=== PATIENT | male | born 1955 | race Caucasian/White ===

== ENCOUNTER 2021-01-06 11:01 | Emergency (ER) | payer OTHER, SELFPAY ==
--- NOTE | 2021-01-06 11:17 | PC.NURSE ---
Pt on phone in waiting room when called for triage. Asked that I wait. Told I would return.
[2021-01-06 11:41] VITALS: BP 170/105; PULSE 108; RESP 16; TEMP 36.7; O2SAT 98; BMI 28.8
--- NOTE | 2021-01-06 12:03 | PC.NURSE ---
Patient reports pain in left hip since . Radiating down front of left thigh burning, numbing pain. Unable to get comfortable. No relief with tramadol.
--- NOTE | 2021-01-06 12:35 | DI.CT.S_ITS ---
PROCEDURE: CT ABDOMEN PELVIS W CON INDICATIONS: Groin pain, ?hernia TECHNIQUE: After the administration of IV contrast, axial sections were acquired from the lung bases to the pubic symphysis. Coronal and sagittal reformats were performed. For radiation dose reduction, the following was used: automated exposure control, adjustment of mA and/or kV according to patient size. COMPARISON: [facility], CR, XR HIP W PEL IF DONE LT 2V, 01/06/2021, 13:42. FINDINGS: Image quality: Excellent. Lung bases: Unremarkable. Heart: No significant findings. ABDOMEN: Liver: Hepatic steatosis is present. Gallbladder: The gallbladder is unremarkable. Biliary ducts: Unremarkable. Pancreas: Unremarkable. Spleen: Unremarkable. Adrenal Glands: Unremarkable. Kidneys and Ureters: 4.0 cm exophytic simple left renal cyst is present. Smaller similar foci are identified bilaterally. No renal obstruction is present. Stomach and Bowel: Stomach, small bowel loops, and colon are unremarkable. Colonic diverticular present without associated inflammatory change. Peritoneum: No abnormal intraperitoneal fluid. No free air. Ventral Wall: Trace fat containing umbilical hernia is present with rectus diastasis measuring approximately 3 mm. Abdominal Nodes: No retroperitoneal or mesenteric adenopathy by size criteria. Vessels: Aorta and inferior vena cava are normal in size. PELVIS: Pelvic Organs: Prostate gland is prominent. Bladder: Unremarkable. Pelvic Nodes: No enlarged lymph nodes. Miscellaneous: Bilateral fat containing inguinal hernias are present. Bones: Unremarkable. IMPRESSION: 1. Trace containing ventral hernia. 2. Diverticulosis. Dictated by: Chela Mora M.D. on 01/06/2021 at 14:08 Approved by: Chela Mora M.D. on 01/06/2021 at 14:15
--- NOTE | 2021-01-06 12:35 | DI.RAD.S_ITS ---
PROCEDURE: XR HIP W PEL IF DONE LT 2V INDICATIONS: Froin and hip pain TECHNIQUE: AP pelvis with lateral view(s) of the left hip(s). COMPARISON: None. FINDINGS: Bones: No fractures or dislocations. Pelvic ring appears intact. No suspicious bony lesions. Moderate degenerative hip joint space narrowing. Soft tissues: The visualized bowel gas pattern is normal. No suspicious soft tissue calcifications. IMPRESSION: Arthritic changes are present hip. No visualized acute fracture or dislocation. However, if clinical concern and/or pain persist, short interval imaging followup in 7-10 days is recommended, as occult injury cannot be definitively excluded. Dictated by: Chela Mora M.D. on 01/06/2021 at 14:05 Approved by: Chela Mora M.D. on 01/06/2021 at 14:08
[2021-01-06] MEDS: KETOROLAC 30 MG/ML VIAL 15 MG IM (12:58)
[2021-01-06] MEDS: CYCLOBENZAPRINE 10 MG TABLET PO (12:58)
[2021-01-06 13:22] LABS: Add Manual Diff / Slide Review NO; Basophils Absolute Auto 100 /uL (0-100); Basophils Percent Auto 1.1 % (0-2); Eosinophils Absolute Auto 600 /uL (0-450); Eosinophils Percent Auto 5.6 % (2-4); Hematocrit 48.1 % (41-53); Hemoglobin 16.8 g/dL (13.5-17.5); Lymphocytes Absolute Auto 1900 /uL (1100-4500); Mean Corpuscular HGB Conc 34.9 % (30-36); Mean Corpuscular Volume 91.6 fL (80-100); Monocytes Absolute Auto 700 /uL (0-900); Monocytes Percent Auto 7.1 % (3-14); Neutrophils Absolute Auto 6800 /uL (1500-7000); Neutrophils Percent Auto 67.2 % (50-75); Platelet Count 198 X10^3/uL (150-400); Red Blood Cell Count 5.25 X10^6/uL (4.5-5.9); Red Cell Distribution Width 12.8 % (11.6-14.8); White Blood Cell Count 10.2 X10^3/uL (4.5-11.0)
[2021-01-06 13:37] LABS: Lactate (Lactic Acid) 1.5 mmol/L (0.7-2.1)
[2021-01-06 13:39] LABS: Alanine Aminotransferase 45 IU/L (<50); Albumin 4.5 g/dL (3.5-5.0); Albumin Globulin Ratio 1.7 (1.0-2.8); Alkaline Phosphatase 69 U/L (38-126); Aspartate Aminotransferase 33 IU/L (17-59); Bilirubin Total 0.7 mg/dL (0.2-1.3); Blood Urea Nitrogen 24 mg/dL (9-20); Calcium 9.9 mg/dL (8.4-10.2); Carbon Dioxide 25 mmol/L (22-32); Chloride 105 mmol/L (98-107); Estimated Glomerular Filt Rate > 60.0 mL/min (>60); Globulin 2.7 g/dL (1.7-4.1); Glucose 99 mg/dL (80-110); HEMOLYSIS < 15 (0-50); Lipase 31 U/L (23-300); Potassium 4.6 mmol/L (3.4-5.1); Sodium 139 mmol/L (137-145); Total Protein 7.2 g/dL (6.3-8.2)
--- NOTE | 2021-01-06 13:41 | ED.EXTPRO ---
HPI - Extremity Problem <Pushpa Lopez PA-C - Last Filed: 01/06/21 16:49> General Chief complaint: Extremity Problem,Nontraumatic Stated complaint: pain in back, neck down to knee numbness x4 days Time Seen by Provider: 01/06/21 11:57 Source: patient Mode of arrival: Ambulatory History of Present Illness HPI Narrative: 65-year-old male with past medical history hypertension, diabetes presents to the ED with 5 days of lower back and groin pain. Patient states that he 1st started feeling some twinges about 2 weeks ago in his left hip, symptoms worsened 5 days ago manifesting as left-sided lower back pain that radiates to the left groin and thigh. Patient states that his pain is currently mostly in his groin and thigh area. Symptoms are worsened with movement and moving side to side. Pain is improved when leaning forward or hunching forward. Patient denies any trauma. Has a history of sciatica on the right side, according to patient the current symptoms are different from his sciatica pain. Patient denies fever, chills, chest pain, cough, shortness of breath, nausea, vomiting, abdominal pain, dysuria, urinary hesitancy, urinary incontinence, saddle paresthesia, stool incontinence, lightheadedness, dizziness, syncope. Patient denies numbness, tingling, weakness. Patient tried tramadol with no relief. Related Data Allergies Allergy/AdvReac Type Severity Reaction Status Date / Time acetaminophen [From Vicodin] Allergy Flushing Verified 01/06/21 11:44 hydrocodone [From Vicodin] Allergy Flushing Verified 01/06/21 11:44 lisinopril Allergy Cough Verified 01/06/21 11:44 Review of Systems <Pushpa Lopez PA-C - Last Filed: 01/06/21 16:49> Review of Systems ROS Unobtainable: All systems reviewed & are unremarkable except as noted in HPI and below Constitutional Constitutional: Denies chills, Denies fatigue, Denies fever(s), Denies frequent falls, Denies lethargy and Denies weakness Eyes Eyes: Denies change in vision, Denies eye discharge, Denies irritation and Denies loss of vision ENT Ears, Nose, Mouth, and Throat: Denies change in voice, Denies dizziness, Denies neck pain, Denies sore throat and Denies throat swelling Cardiovascular Cardiovascular: Denies chest pain, Denies irregular heart rhythm, Denies lightheadedness, Denies palpitations, Denies dyspnea, Denies dyspnea on exertion and Denies orthopnea Respiratory Respiratory: Denies cough, Denies dyspnea, Denies dyspnea on exertion and Denies wheezing Gastrointestinal Gastrointestinal: Denies abdominal pain, Denies change in bowel habits, Denies diarrhea, Denies nausea and Denies vomiting Genitourinary Genitourinary: Denies hematuria, Denies flank pain, Denies urinary incontinence and Denies urinary urgency Musculoskeletal Musculoskeletal: Reports back pain, Denies muscle weakness, Denies neck pain, Denies numbness and Denies tingling Comments: Left-sided lower back pain radiating to the left groin and left front thigh Integumentary/Breasts Skin/Breast: Denies pruritus, Denies erythema, Denies rash and Denies wounds Neurologic Neurologic: Denies behavioral changes, Denies confusion, Denies dizziness, Denies frequent falls, Denies loss of vision, Denies numbness, Denies tingling and Denies weakness Psychiatric Psychiatric: Denies anxiety, Denies behavioral changes, Denies confusion, Denies depression, Denies homicidal ideation and Denies suicidal ideation Endocrine Endocrine: Denies fatigue, Denies flushing and Denies palpitations Hematologic/Lymphatic Hematologic/Lymphatic: Denies easy bruising Allergic/Immunologic Allergic/Immunologic: Denies urticaria, Denies throat swelling and Denies wheezing Patient History <Pushpa Lopez PA-C - Last Filed: 01/06/21 16:49> Social History Smoking Status: Former smoker Smoking Status: Former smoker Substance Use Type: does not use Exam <Pushpa Lopez PA-C - Last Filed: 01/06/21 16:49> Initial Vital Signs Initial Vital Signs: Vital Signs Temperature 98.1 F 01/06/21 11:41 Pulse Rate 108 H 01/06/21 11:41 Respiratory Rate 16 01/06/21 11:41 Blood Pressure 170/105 H 01/06/21 11:41 Pulse Oximetry 98 01/06/21 11:41 Const General: cooperative and healthy appearing [facility] Head: normal to inspection Eyes General: appearance normal, both eyes and all related structures Neck Neck: normal visual inspection Chest Chest: normal inspection of the chest Resp Effort & Inspection: normal respiratory effort Auscultation: clear to auscultation bilaterally Cardio Rate: regular rate Rhythm: regular rhythm GI Inspection: normal to inspection Other: Left-sided groin tenderness to palpation. No palpable hernia. Scrotum: no masses and no scrotal swelling Back/Spine/Pelvis Back: normal to inspection Other: No midline tenderness to palpation Skin General: no rashes or lesions noted Neuro General: patient alert, patient awake and patient oriented x3 Other: Strength and sensation intact. PERRLA. CN 1 through 12 intact bilaterally Extrem General: normal to inspection <Zen El DO - Last Filed: 01/06/21 17:16> Initial Vital Signs Initial Vital Signs: Vital Signs Temperature 98.1 F 01/06/21 11:41 Pulse Rate 108 H 01/06/21 11:41 Respiratory Rate 16 01/06/21 11:41 Blood Pressure 170/105 H 01/06/21 11:41 Pulse Oximetry 98 01/06/21 11:41 Course <Pushpa Lopez PA-C - Last Filed: 01/06/21 16:49> Orders Ordered: ED Orders 01/06/21 12:35 CT abdomen pelvis w con Stat XR hip w pel if done LT 2V Stat 01/06/21 13:03 CBC Auto Diff [Complete Blood Count AUTO DIFF] Stat CMP [Comprehensive Metabolic Panel] Stat Lactate (Lactic Acid) Stat Lipase Stat Discontinued Medications Cyclobenzaprine HCl (Cyclobenzaprine 10 Mg Tablet) 10 mg PO NOW ONE Stop: 01/06/21 12:37 Last Admin: 01/06/21 12:58 Dose: 10 mg Documented by: KAMAR Ketorolac Tromethamine (Ketorolac 30 Mg/Ml Vial) 15 mg IM NOW ONE Stop: 01/06/21 12:37 Last Admin: 01/06/21 12:58 Dose: 15 mg Documented by: KAMAR Vital Signs Vital signs: Vital Signs - 8 hr 01/06/21 11:41 01/06/21 14:27 Temperature 98.1 F Pulse Rate 108 H 94 H Respiratory Rate 16 19 Blood Pressure 170/105 H 164/97 H Pulse Oximetry 98 95 <DO Margaret Byrnes Last Filed: 01/06/21 17:16> Orders Ordered: ED Orders 01/06/21 12:35 CT abdomen pelvis w con Stat XR hip w pel if done LT 2V Stat 01/06/21 13:03 CBC Auto Diff [Complete Blood Count AUTO DIFF] Stat CMP [Comprehensive Metabolic Panel] Stat Lactate (Lactic Acid) Stat Lipase Stat Discontinued Medications Cyclobenzaprine HCl (Cyclobenzaprine 10 Mg Tablet) 10 mg PO NOW ONE Stop: 01/06/21 12:37 Last Admin: 01/06/21 12:58 Dose: 10 mg Documented by: KAMAR Ketorolac Tromethamine (Ketorolac 30 Mg/Ml Vial) 15 mg IM NOW ONE Stop: 01/06/21 12:37 Last Admin: 01/06/21 12:58 Dose: 15 mg Documented by: KAMAR Vital Signs Vital signs: Vital Signs - 8 hr 01/06/21 11:41 01/06/21 14:27 Temperature 98.1 F Pulse Rate 108 H 94 H Respiratory Rate 16 19 Blood Pressure 170/105 H 164/97 H Pulse Oximetry 98 95 MDM - Extremity (Nontraumatic) <Pushpa Lopez PA-C - Last Filed: 01/06/21 16:49> Medical Records Attestation: I reviewed the patient's medical records. Lab Data Result diagrams: 01/06/21 13:03 01/06/21 13:03 Labs: Lab Results 01/06/21 01/06/21 01/06/21 Range/Units 13:03 13:03 13:03 WBC 10.2 (4.5-11.0) X10^3/uL RBC 5.25 (4.5-5.9) X10^6/uL Hgb 16.8 (13.5-17.5) g/dL Hct 48.1 (41-53) % MCV 91.6 (80-100) fL MCH 32.0 (26-34) PG MCHC 34.9 (30-36) % RDW 12.8 (11.6-14.8) % Plt Count 198 (150-400) X10^3/uL Neut % (Auto) 67.2 (50-75) % Lymph % (Auto) 19.0 L (25-40) % [place] % (Auto) 7.1 (3-14) % Eos % (Auto) 5.6 H (2-4) % Baso % (Auto) 1.1 (0-2) % Neut # (Auto) 6800 (7090-4848) /uL Lymph # (Auto) 1900 (3385-7940) /uL [place] # (Auto) 700 (0-900) /uL Eos # (Auto) 600 H (0-450) /uL Baso # (Auto) 100 (0-100) /uL Sodium 139 (137-145) mmol/L Potassium 4.6 (3.4-5.1) mmol/L Chloride 105 (98-107) mmol/L Carbon Dioxide 25 (22-32) mmol/L BUN 24 H (9-20) mg/dL Creatinine 1.20 (0.66-1.25) mg/dL Estimated GFR > 60.0 (>60) mL/min BUN/Creatinine Ratio 20.0 (6-22) Glucose 99 (80-110) mg/dL Lactate 1.5 (0.7-2.1) mmol/L Calcium 9.9 (8.4-10.2) mg/dL Total Bilirubin 0.7 (0.2-1.3) mg/dL AST 33 (17-59) IU/L ALT 45 (<50) IU/L Alkaline Phosphatase 69 (38-126) U/L Total Protein 7.2 (6.3-8.2) g/dL Albumin 4.5 (3.5-5.0) g/dL Globulin 2.7 (1.7-4.1) g/dL Albumin/Globulin Ratio 1.7 (1.0-2.8) Lipase 31 (23-300) U/L Imaging Data Hip XR: Radiologist's Impression: PROCEDURE:? XR HIP W PEL IF DONE LT 2V ? INDICATIONS:? Froin and hip pain ? TECHNIQUE:? AP pelvis with lateral view(s) of the left hip(s).? ? COMPARISON:? None. ? FINDINGS:? ? Bones:? No fractures or dislocations.? Pelvic ring appears intact.? No suspicious bony lesions.? Moderate degenerative hip joint space narrowing. ? Soft tissues:? The visualized bowel gas pattern is normal.? No suspicious soft tissue calcifications.? ? ? IMPRESSION:? Arthritic changes are present hip. No visualized acute fracture or dislocation. However, if clinical concern and/or pain persist, short interval imaging followup in 7-10 days is recommended, as occult injury cannot be definitively excluded. ? ? ? Dictated by: Chela Mora M.D. on 01/06/2021 at 14:05 ? ? Approved by: Chela Mora M.D. on 01/06/2021 at 14:08 ? CT scan - abdomen/pelvis: Radiologist's Impression: PROCEDURE:? CT ABDOMEN PELVIS W CON ? INDICATIONS:? Groin pain, ?hernia ? TECHNIQUE:? After the administration of IV contrast, axial sections were acquired from the lung bases to the pubic symphysis.? Coronal and sagittal reformats were performed.? For radiation dose reduction, the following was used:? automated exposure control, adjustment of mA and/or kV according to patient size. ? COMPARISON:? [facility], CR, XR HIP W PEL IF DONE LT 2V, 01/06/2021, 13:42. ? FINDINGS:? Image quality:? Excellent.? ? Lung bases:? Unremarkable.? ? Heart:? No significant findings. ? ? ABDOMEN: Liver:? Hepatic steatosis is present. Gallbladder:? The gallbladder is unremarkable.? ? Biliary ducts:? Unremarkable.? ? Pancreas:? Unremarkable.? ? Spleen:? Unremarkable.? ? Adrenal Glands:? Unremarkable.? ? Kidneys and Ureters:? 4.0 cm exophytic simple left renal cyst is present.? Smaller similar foci are identified bilaterally.? No renal obstruction is present. ? Stomach and Bowel:? Stomach, small bowel loops, and colon are unremarkable.? Colonic diverticular present without associated inflammatory change. Peritoneum:? No abnormal intraperitoneal fluid.? No free air.? ? Ventral Wall: ? Trace fat containing umbilical hernia is present with rectus diastasis measuring approximately 3 mm. Abdominal Nodes:? No retroperitoneal or mesenteric adenopathy by size criteria.? Vessels:? Aorta and inferior vena cava are normal in size.? ? PELVIS: Pelvic Organs:? Prostate gland is prominent. Bladder:? Unremarkable.? ? Pelvic Nodes: No enlarged lymph nodes.? Miscellaneous:? Bilateral fat containing inguinal hernias are present. ? Bones:? Unremarkable.? IMPRESSION:? ? 1. Trace containing ventral hernia. ? 2. Diverticulosis.? ? ? Dictated by: Chela Mora M.D. on 01/06/2021 at 14:08 ? ? Approved by: Chela Mora M.D. on 01/06/2021 at 14:15 ? [facility] Narrative Medical decision making narrative: 65-year-old male with past medical history hypertension, diabetes presents to the ED with 5 days of lower back and groin pain. Concern for fracture/dislocation versus hernia versus groin strain. Will order labs, lactate, CT abdomen pelvis, hip and pelvis x-rays. Will treat pain with Toradol external. Will reassess. Pain improved with the Toradol, Flexeril. CT with no acute findings. X-ray with no acute findings. Bilateral inguinal hernias, umbilical hernia, left renal cyst noted on CT, discussed with patient for further follow-up. Patient discharged home with ED return precautions, PCP follow-up. Patient verbalized understanding. <Zen El DO - Last Filed: 01/06/21 17:16> Lab Data Labs: Lab Results 01/06/21 01/06/21 01/06/21 Range/Units 13:03 13:03 13:03 WBC 10.2 (4.5-11.0) X10^3/uL RBC 5.25 (4.5-5.9) X10^6/uL Hgb 16.8 (13.5-17.5) g/dL Hct 48.1 (41-53) % MCV 91.6 (80-100) fL MCH 32.0 (26-34) PG MCHC 34.9 (30-36) % RDW 12.8 (11.6-14.8) % Plt Count 198 (150-400) X10^3/uL Neut % (Auto) 67.2 (50-75) % Lymph % (Auto) 19.0 L (25-40) % [place] % (Auto) 7.1 (3-14) % Eos % (Auto) 5.6 H (2-4) % Baso % (Auto) 1.1 (0-2) % Neut # (Auto) 6800 (7711-5201) /uL Lymph # (Auto) 1900 (2793-7008) /uL [place] # (Auto) 700 (0-900) /uL Eos # (Auto) 600 H (0-450) /uL Baso # (Auto) 100 (0-100) /uL Sodium 139 (137-145) mmol/L Potassium 4.6 (3.4-5.1) mmol/L Chloride 105 (98-107) mmol/L Carbon Dioxide 25 (22-32) mmol/L BUN 24 H (9-20) mg/dL Creatinine 1.20 (0.66-1.25) mg/dL Estimated GFR > 60.0 (>60) mL/min BUN/Creatinine Ratio 20.0 (6-22) Glucose 99 (80-110) mg/dL Lactate 1.5 (0.7-2.1) mmol/L Calcium 9.9 (8.4-10.2) mg/dL Total Bilirubin 0.7 (0.2-1.3) mg/dL AST 33 (17-59) IU/L ALT 45 (<50) IU/L Alkaline Phosphatase 69 (38-126) U/L Total Protein 7.2 (6.3-8.2) g/dL Albumin 4.5 (3.5-5.0) g/dL Globulin 2.7 (1.7-4.1) g/dL Albumin/Globulin Ratio 1.7 (1.0-2.8) Lipase 31 (23-300) U/L Discharge Plan Departure Patient Disposition: Home Clinical Impression: Groin pain Instructions: Groin Hernia -- Adult, DI for Groin Strain Activity Restrictions/Additional Instructions: You were evaluated in the ED today for left-sided groin pain. Your x-rays did not show evidence of a fracture or dislocation. Your CT abdomen pelvis shows bilateral inguinal hernias, a left-sided renal cyst, the ventral wall umbilical hernia. However the hernias are not incarcerated or strangulated and do not constitute an emergency at this time. Your symptoms could be caused either due to a groin strain or inguinal hernia. You may continue to take ibuprofen for pain. Please follow-up with your PCP for further workup on the CT findings. Return to the ED if you experience worsening abdominal pain or groin pain, numbness, tingling, weakness, fever, chills, nausea, vomiting. Referrals: Roseann Nair PA-C [Primary Care Provider] - <Zen El DO - Last Filed: 01/06/21 17:16> [facility]: Dr El Co-Sign Statement: I was available for consultation during this patient's emergency department visit. This chart is signed by myself for administrative purposes only. I did not have direct contact with this patient during this visit. They were seen independently by the APC.
[2021-01-06 14:27] VITALS: BP 164/97; PULSE 94; RESP 19; O2SAT 95
== END 2021-01-06 14:44 | disposition home or self-care (01) ==
PROVIDERS: Emergency Provider Student in an Organized Health Care Education/Training Program; PCP Physician Assistant Medical
DX: K40.20 Bilateral inguinal hernia, without obstruction or gangrene, not specified as recurrent (principal); K42.9 Umbilical hernia without obstruction or gangrene; S39.011A Strain of muscle, fascia and tendon of abdomen, initial encounter
CPT/HCPCS: 73502; 74177; 80053; 83605; 83690; 85025; 96372; 99284; J1885

== ENCOUNTER 2023-10-13 14:56 | Emergency (ER) | payer OTHER, SELFPAY ==
[2023-10-13 15:20] VITALS: BP 141/82; PULSE 84; RESP 17; TEMP 36.8; O2SAT 95; BMI 27.2
--- NOTE | 2023-10-13 17:26 | ED_ITS ---
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 He is denying any specific injury, no fall and he has tried no treatment. He states the pain improves a little bit with flexion but is worse when he is rolling over in bed. He states it radiates down the buttock the groin to the level of the knee with occasional tingling. He is denying any weakness, any urinary symptoms, flank pain, no recent illness, no fever. His history is significant for a left lower lumbar discectomy unknown exact level, performed 3 years ago in [facility]. He has had no issues since that time. No other complaints, he states his diabetes type 2 as well controlled he is now on Ozempic. All other systems are reviewed and are negative. Related Data Allergies Allergy/AdvReac Type Severity Reaction Status Date / Time hydrocodone [From Vicodin] Allergy Flushing Verified 10/13/23 15:26 lisinopril Allergy Cough Verified 10/13/23 15:26 Review of Systems <Judy Vyas PA-C - Last Filed: 10/13/23 19:24> Review of Systems Narrative: All other systems reviewed and are negative. Patient History <Judy Vyas PA-C - Last Filed: 10/13/23 19:24> Social History Smoking Status: Former smoker Smoking Status: Former smoker tobacco type: cigarettes alcohol intake frequency: holidays/special occasions only Substance Use Type: does not use Exam <Judy Vyas PA-C - Last Filed: 10/13/23 19:24> Initial Vital Signs Initial Vital Signs: Vital Signs Temperature 98.3 F 10/13/23 15:20 Pulse Rate 84 10/13/23 15:20 Respiratory Rate 17 10/13/23 15:20 Blood Pressure 141/82 H 10/13/23 15:20 Pulse Oximetry 95 10/13/23 15:20 Oxygen Delivery Method Room Air 10/13/23 15:20 Vital signs reviewed and are normal. Const Other: Smiling, seated, reading a newspaper in no distress. He is here with his . Neck Neck: normal visual inspection and full ROM Chest Other: No discoloration, no swelling of the anterior posterior chest. Resp Effort & Inspection: normal respiratory effort and able to speak in complete sentences Auscultation: clear to auscultation bilaterally, no rales, no rhonchi and no wheezes Cardio Rate: regular rate Rhythm: regular rhythm Back/Spine/Pelvis Other: Paraspinous tenderness on the right lumbar sacral region. No swelling, no guarding, no mass. Active range of motion is grossly intact. He has slight discomfort reproduced with lateral bending to the left greater than right. He has full forward flexion reaching his fingertips to the level of his ankles without pain, he has full extension and hyperextension no pain. Rotation is also grossly intact. Straight leg raise is negative bilaterally. He has focal tenderness in the sciatic notch and piriformis without guarding. Nontender ITB band. Full weightbear normal gait. No issues identified with the hips or pelvis. Neuro Other: No focal neurologic deficits or findings. Sensory is grossly intact to his lower extremities. Deep tendon reflexes are equal bilaterally at the knee jerk and ankle jerk both 3+, plantar are downward. Normal DP and PT pulses distally. <Radha Mata MD - Last Filed: 11/04/23 04:17> Initial Vital Signs Initial Vital Signs: Vital Signs Temperature 98.3 F 10/13/23 15:20 Pulse Rate 84 10/13/23 15:20 Respiratory Rate 17 10/13/23 15:20 Blood Pressure 141/82 H 10/13/23 15:20 Pulse Oximetry 95 10/13/23 15:20 Oxygen Delivery Method Room Air 10/13/23 15:20 Course <Judy Vyas PA-C - Last Filed: 10/13/23 19:24> Course Course Narrative: He is treated with ketorolac 30 mg intramuscularly re-evaluated he states his pain has significantly improved. Orders Ordered: Discontinued Medications Ketorolac Tromethamine (Ketorolac 30 Mg/Ml Vial) 30 mg IM NOW ONE Stop: 10/13/23 17:45 Last Admin: 10/13/23 17:49 Dose: 30 mg Documented By: MPO Vital Signs Vital signs: Vital Signs - 8 hr 10/13/23 15:20 10/13/23 18:28 Temperature 98.3 F Pulse Rate 84 75 Respiratory Rate 17 16 Blood Pressure 141/82 H 131/75 Pulse Oximetry 95 96 Oxygen Delivery Method Room Air Room Air Vital signs reviewed and are normal. <Radha Mata MD - Last Filed: 11/04/23 04:17> Orders Ordered: Discontinued Medications Ketorolac Tromethamine (Ketorolac 30 Mg/Ml Vial) 30 mg IM NOW ONE Stop: 10/13/23 17:45 Last Admin: 10/13/23 17:49 Dose: 30 mg Documented By: LIS Vital Signs Vital signs: Vital Signs - 8 hr 10/13/23 15:20 10/13/23 18:28 Temperature 98.3 F Pulse Rate 84 75 Respiratory Rate 17 16 Blood Pressure 141/82 H 131/75 Pulse Oximetry 95 96 Oxygen Delivery Method Room Air Room Air MDM - Back Pain/Injury <Judy Vyas PA-C - Last Filed: 10/13/23 19:24> Lab Data Lab results narrative: Urinalysis is within normal limits, no blood. He does have glucose in his a known type 2 diabetic. Labs: Lab Results 10/13/23 Range/Units 17:29 Urine Color Yellow Urine Appearance Clear Urine pH 6.0 (4.5-8.0) Ur Specific [place] 1.020 (1.000-1.035) Urine Protein 2+ H (Negative) Urine Glucose (UA) 3+ H (Negative) g/dL Urine Ketones Negative (NEGATIVE) Urine Occult Blood Negative (Negative) Urine Nitrate Negative (Negative) Urine Bilirubin Negative (NEGATIVE) Urine Urobilinogen 0.2 (0.2) E.U./dL Ur Leukocyte Esterase Negative (NEGATIVE) Urine RBC 0-1/hpf (0-5/HPF) Urine WBC 0-1/hpf (0-5/HPF) Ur Squamous Epith Cells None seen (0-5/HPF) Urine Bacteria Occasional (0-1) (None) Ur Culture Indicated? Cult not indicated Vol Urine Centrifuged 10ml (spun) MDM Narrative Medical decision making narrative: Lumbar sacral strain most likely, differential includes sciatica, type piriformis, disc bulge, no focal neurologic deficits normal straight leg raise, reproducible pain is minimal with lateral rotation to the left side only, tenderness in the paraspinous tissues no midline tenderness. He is treated with ketorolac 30 mg intramuscularly today with significant improvement to his pain.. No clinical findings on examination to suggest cauda equina, back pain is less than 6 weeks with no associated traumatic injury, radiographs are not warranted today. He is advised however if his symptoms persist then imaging would be warranted. <Radha Mata MD - Last Filed: 11/04/23 04:17> Lab Data Labs: Lab Results 10/13/23 Range/Units 17:29 Urine Color Yellow Urine Appearance Clear Urine pH 6.0 (4.5-8.0) Ur Specific [place] 1.020 (1.000-1.035) Urine Protein 2+ H (Negative) Urine Glucose (UA) 3+ H (Negative) g/dL Urine Ketones Negative (NEGATIVE) Urine Occult Blood Negative (Negative) Urine Nitrate Negative (Negative) Urine Bilirubin Negative (NEGATIVE) Urine Urobilinogen 0.2 (0.2) E.U./dL Ur Leukocyte Esterase Negative (NEGATIVE) Urine RBC 0-1/hpf (0-5/HPF) Urine WBC 0-1/hpf (0-5/HPF) Ur Squamous Epith Cells None seen (0-5/HPF) Urine Bacteria Occasional (0-1) (None) Ur Culture Indicated? Cult not indicated Vol Urine Centrifuged 10ml (spun) Discharge Plan Departure Patient Disposition: Home Clinical Impression: Low back pain Instructions: DI for Back Pain With Sciatica Activity Restrictions/Additional Instructions: I would like you to follow up with your primary care provider, you may benefit from physical therapy and this requires a prescription referral. If your symptoms persist you may warrant further imaging such as MRI as an outpatient. You received ketorolac intramuscularly injection today which is a very strong anti-inflammatory. You may then continue oral ibuprofen tomorrow 400-600 mg by mouth 3 times a day with food for the next 3-5 days for the full anti- inflammatory effect. You also may use regular Tylenol as needed for pain follow the packaging instructions. I would like you to definitely try ice using your reusable ice pack applied directly over a T-shirt where you are having the low back pain for about 10-15 minutes at a time several times per day. You may alternate heat as well. Please return to the emergency department if you have any worsening symptoms you develop any weakness, any issues with urination, or any other worrisome symptoms. Referrals: Noe Aguila MD [Primary Care Provider] - Stand Alone Forms: Patient Portal/API ED Sign-out <Radha Mata MD - Last Filed: 11/04/23 04:17> Cosign ED Attending Ana Laura Attestation: I was immediately available in the department for consultation throughout this patient's visit. Radha Mata MD
--- NOTE | 2023-10-13 17:37 | PC.NURSE ---
Pt reports that he has been experiencing low back pain that radiates down to his ground and into his thighs. Pt ambulated into dept with steady gait and exiting and entering room without difficulty. Pt denies any issues with bowel movements or urination. Denies fever, SOB, n/v/d. A&Ox4.
[2023-10-13 17:47] LABS: Appearance Urine UA CLEAR; Bilirubin Urine UA NEGATIVE (NEGATIVE); Color Urine UA YELLOW; Glucose Urine UA 3+ g/dL (Negative); Ketones Urine UA NEGATIVE (NEGATIVE); Leukocyte Esterase Urine UA NEGATIVE (NEGATIVE); Nitrite Urine UA NEGATIVE (Negative); Occult Blood Urine UA NEGATIVE (Negative); Protein Urine UA 2+ (Negative); Urobilinogen Urine UA 0.2 E.U./dL (0.2)
[2023-10-13] MEDS: KETOROLAC 30 MG/ML VIAL IM (17:49)
[2023-10-13 17:54] LABS: Bacteria Urine Occasional (0-1); RBC Urine 0-1/HPF (0-5/HPF); Urine Volume 10mL (spun); WBC Urine 0-1/HPF (0-5/HPF)
[2023-10-13 17:55] LABS: Culture Indicated Urine Cult Not Indicated; Squamous Epithelial Cell Urine None Seen (0-5/HPF)
[2023-10-13 18:28] VITALS: BP 131/75; PULSE 75; RESP 16; O2SAT 96
== END 2023-10-13 18:29 | disposition home or self-care (01) ==
PROVIDERS: Emergency Provider Physician Assistant Medical; PCP Internal Medicine
DX: M54.41 Lumbago with sciatica, right side (principal)
CPT/HCPCS: 81001; 96372; 99283; J1885